=== PATIENT | female | born 1985 | race Caucasian/White ===

== ENCOUNTER 2016-09-26 09:50 | Emergency (ER) | payer OTHER ==
[2016-09-26 11:26] VITALS: BP 110/74
--- NOTE | 2016-09-26 11:40 | UC ---
Ear Complaint HPI - HPI Summary HPI Summary: About 4 weeks ago felt painful lump develop at entrance to L ear canal. Had similar problem 2.5 months ago; it drained and then felt better for a while, but it has not been painful for almost a month. Also drained this morning lots of yellow and green fluid. Pain radiating up and down ear/jaw, denies any widespread redness, fever or swelling. No hx of ear surgery, but says one ear was folded over at and so it had to be taped back against her head for 2 months. - History of Current Complaint Chief Complaint: Trixie Stated Complaint: SORE INSIDE OF EAR CANNAL Time Seen by Provider: 09/26/16 11:29 Hx Obtained From: Patient Hx Last Menstrual Period: 08/25/16-DEPO SHOT ?: No Onset/Duration: Gradual Onset, Lasting Weeks Severity Initially: Mild Severity Currently: Moderate Aggravating Factors: Nothing Alleviating Factors: Other (Noted In Comments) - drainage Associated Signs/Symptoms: Positive: Discharge. Negative: URI Symptoms - Allergies/Home Medications Allergies/Adverse Reactions: Allergies Allergy/AdvReac Type Severity Reaction Status Date / Time Cephalexin [From Keflex] Allergy Unknown Verified 06/20/15 18:15 Reaction Details Nitrofurantoin Allergy Vomiting Verified 06/20/15 18:15 [From Macrobid] PMH/Surg Hx/FS Hx/Imm Hx Endocrine History Of: Denies: Diabetes, Thyroid Disease Cardiovascular History Of: Denies: Cardiac Disorders, Hypertension Respiratory History Of: Denies: COPD, Asthma GI/ History Of: Reports: Gastroesophageal Reflux, Ulcer Other History Of: Negative For: Anticoagulant Therapy - Surgical History Surgical History: Yes Surgery Procedure, Year, and Place: APPENDECTOMY. tubal ligation - Family History Known Family History: Positive: Hypertension Negative: Cardiac Disease, Diabetes - Social History Occupation: Employed Full-time Alcohol Use: Occasionally Substance Use Type: None Smoking Status (MU): Light Every Day Tobacco Smoker Type: Cigarettes Amount Used/How Often: 1/2 PPD Household Exposure Type: Cigarettes - Immunization History Most Recent Influenza Vaccination: never Most Recent Tetanus Shot: unk Most Recent Pneumonia Vaccination: never Review of Systems Constitutional: Negative Skin: Negative Eyes: Negative ENT: Ear Ache Respiratory: Negative Cardiovascular: Negative Gastrointestinal: Negative Genitourinary: Negative Motor: Negative Neurovascular: Negative Musculoskeletal: Negative Neurological: Negative Psychological: Negative All Other Systems Reviewed And Are Negative: Yes Physical Exam Triage Information Reviewed: Yes Appearance: Well-Appearing, Well-Nourished, Pain Distress - with touch Vital Signs: Initial Vital Signs Temp 98.2 F 09/26/16 11:19 Pulse 71 09/26/16 11:19 Resp 16 09/26/16 11:19 BP 110/74 09/26/16 11:19 Pulse Ox 97 09/26/16 11:19 Vital Signs Reviewed: Yes Eye Exam: Normal Eyes: Positive: Conjunctiva Clear ENT: Positive: Hearing grossly normal, Pharynx normal, TMs normal, Other: - tender papule at L ear canal introitus, no drainage noted. Negative: Tonsillar swelling Dental Exam: Normal Neck exam: Normal Neck: Positive: Supple, Nontender, No Lymphadenopathy Respiratory Exam: Normal Respiratory: Positive: Chest non-tender, Lungs clear, Normal breath sounds, No respiratory distress, No accessory muscle use Cardiovascular Exam: Normal Cardiovascular: Positive: RRR, No Murmur Musculoskeletal Exam: Normal Neurological Exam: Normal Psychological Exam: Normal Skin Exam: Normal Ear Complaint Course/Dx - Differential Dx/Diagnosis Provider Diagnoses: L ear canal recurrent abscess Discharge - Discharge Plan Condition: Stable Disposition: HOME Prescriptions: Sulfamethox/Trimethoprim DS* [Bactrim DS 800/160 TAB*] 1 tab PO BID #10 tab Patient Education Materials: Abscess (ED) Referrals: Monica Herrera MD [Primary Care Provider] - Santos Pickard MD [Medical Doctor] - Additional Instructions: Continue to use the bactroban ointment and otherwise try to leave the painful sore alone. Arrange for a follow-up visit with the ENT office whenever they can get you in.
== END 2016-09-26 11:47 | disposition home or self-care (01) ==
LOC: UCEAST 09:50
DX: H60.02 Abscess of left external ear (principal); F17.210 Nicotine dependence, cigarettes, uncomplicated
CPT/HCPCS: 99212; G0463

== ENCOUNTER 2016-11-07 19:48 | Emergency (ER) | payer OTHER ==
[2016-11-07 20:11] VITALS: BP 121/80
[2016-11-07] MEDS ORDERED: Amoxicillin/Clavulanate TAB* 875 MG PO ONE (20:31)
--- NOTE | 2016-11-07 20:37 | UC ---
Throat Pain/Nasal Devin HPI - HPI Summary HPI Summary: THREE WEEKS SINUS PRESSURE AND EAR PRESSURE, THREE DAYS OF SORE THROAT. - History of Current Complaint Chief Complaint: UCRespiratory Stated Complaint: SORE THROAT Time Seen by Provider: 11/07/16 20:07 Hx Obtained From: Patient Hx Last Menstrual Period: TUBAL LIGATION, ON DEPO Onset/Duration: Sudden Onset, Lasting Weeks, Worse Since - THREE DAYS Severity: Moderate Cough: Nonproductive Associated Signs & Symptoms: Positive: Dysphagia, Hoarseness, Sinus Discomfort, Nasal Discharge - Epiglottits Risk Factors Epiglottis Risk Factors: Negative - Allergies/Home Medications Allergies/Adverse Reactions: Allergies Allergy/AdvReac Type Severity Reaction Status Date / Time Cephalexin [From Keflex] Allergy Unknown Verified 11/07/16 20:11 Reaction Details Nitrofurantoin Allergy Vomiting Verified 11/07/16 20:11 [From Macrobid] Home Medications: Home Medications Acetaminophen TAB* [Tylenol TAB*] 650 mg PO PRN 11/07/16 [History] medroxyPROGESTERone ACETATE* [DEPO-Provera*] 11/07/16 [History] PMH/Surg Hx/FS Hx/Imm Hx Previously Healthy: Yes Endocrine History Of: Denies: Diabetes, Thyroid Disease Cardiovascular History Of: Denies: Cardiac Disorders, Hypertension Respiratory History Of: Denies: COPD, Asthma GI/ History Of: Reports: Gastroesophageal Reflux, Ulcer Other History Of: Negative For: Anticoagulant Therapy - Surgical History Surgical History: Yes Surgery Procedure, Year, and Place: APPENDECTOMY. tubal ligation - Family History Known Family History: Positive: Hypertension Negative: Cardiac Disease, Diabetes - Social History Occupation: Employed Full-time Lives: With Family Alcohol Use: Rare Substance Use Type: None Smoking Status (MU): Current Every Day Smoker Type: Cigarettes Amount Used/How Often: 1/2 PPD Household Exposure Type: Cigarettes - Immunization History Most Recent Influenza Vaccination: never Most Recent Tetanus Shot: unk Most Recent Pneumonia Vaccination: never Review of Systems Constitutional: Negative Skin: Negative Eyes: Negative ENT: Sore Throat, Ear Ache Respiratory: Negative Cardiovascular: Negative Gastrointestinal: Negative Genitourinary: Negative Motor: Negative Neurovascular: Negative Musculoskeletal: Negative Neurological: Negative Psychological: Negative All Other Systems Reviewed And Are Negative: Yes Physical Exam Triage Information Reviewed: Yes Appearance: Well-Appearing, No Pain Distress, Well-Nourished Vital Signs: Initial Vital Signs Temp 97.6 F 11/07/16 20:08 Pulse 88 11/07/16 20:08 Resp 16 11/07/16 20:08 BP 121/80 11/07/16 20:08 Pulse Ox 100 11/07/16 20:08 Vital Signs Reviewed: Yes Eye Exam: Normal ENT Exam: Normal ENT: Positive: Pharyngeal erythema, TM bulging, TM dull, Tonsillar swelling Dental Exam: Normal Neck exam: Normal Neck: Positive: Supple, Nontender Respiratory Exam: Normal Respiratory: Positive: Chest non-tender, Lungs clear, Normal breath sounds, No respiratory distress Cardiovascular Exam: Normal Cardiovascular: Positive: RRR, No Murmur, Pulses Normal Abdominal Exam: Normal Musculoskeletal Exam: Normal Neurological Exam: Normal Psychological Exam: Normal Skin Exam: Normal Throat Pain/Nasal Course/Dx - Differential Dx/Diagnosis Differential Diagnosis/HQI/PQRI: Sinusitis, Tonsillitis, URI Provider Diagnoses: SINUSITIS. TONSILLITIS Discharge - Discharge Plan Condition: Stable Disposition: HOME Prescriptions: Amoxicillin/Clavulanate TAB* [Augmentin TAB 875*] 875 mg PO BID #20 tab Patient Education Materials: Sinusitis (ED), Tonsillitis (ED) Referrals: Blade Blackmon MD [Primary Care Provider] -
== END 2016-11-07 20:36 | disposition home or self-care (01) ==
LOC: UCEAST 19:48
DX: J32.9 Chronic sinusitis, unspecified (principal); J03.90 Acute tonsillitis, unspecified; Z88.1 Allergy status to other antibiotic agents; F17.210 Nicotine dependence, cigarettes, uncomplicated
CPT/HCPCS: 99212; A9270-GY; G0463

== ENCOUNTER 2017-01-16 11:19 | Emergency (ER) | payer OTHER ==
[2017-01-16 13:08] VITALS: BP 109/68
[2017-01-16] MEDS ORDERED: Meclizine TAB* 12.5 MG PO ONE (14:19)
--- NOTE | 2017-01-16 14:52 | ED ---
I, Oh,Kristy, scribed for Negar Weeks MD on 01/16/17 at 1352 . Dizziness - HPI Summary HPI Summary: This 31 y/o female presents to ED for intermittent dizziness since 2 days ago. She has just rolled out of bed at the time of onset when she noticed dizziness and had to lied back down. Position change such as standing from lying down make the dizziness worse. Pt had another episode today again while driving today , and pt decided to visit ED. Positive sinus pressure with brown mucus and ear discomfort since 10 days ago after her flight from [place]. "My ears keep popping ". PMHx is positive for chronic back pain. FHx is positive for PA, DM, CA to mother, and unspecified blood disorder to father. She lives with and kids. Current smoker. Primary care involves Dr. Blackmon. Pt states that she has been working on home project and has been going on a roof a lot. She was strongly recommended against driving and getting on roof again her vertigo is resolved. Plan of care with meclizine treatment and discharge is discussed with pt, and she is agreeable. - History Of Current Complaint Chief Complaint: EDDizziness Stated Complaint: DIZZY, VOMITING, Hx Obtained From: Patient Onset/Duration: Resolved Timing: Intermittent Episode Lasting Character: Dizzy Aggravating Factor(s): Position Change, Supine To Erect Alleviating Factor(s): Rest Associated Signs And Symptoms: Negative: Nausea, Vomiting, Tinnitus, Visual Changes, Inability to Walk, Slurred Speech - Allergies/Home Medications Allergies/Adverse Reactions: Allergies Allergy/AdvReac Type Severity Reaction Status Date / Time Cephalexin [From Keflex] Allergy Unknown Verified 11/07/16 20:11 Reaction Details Nitrofurantoin Allergy Vomiting Verified 11/07/16 20:11 [From Macrobid] PMH/Surg Hx/FS Hx/Imm Hx Endocrine/Hematology History: Denies: Hx Anticoagulant Therapy, Hx Diabetes, Hx Thyroid Disease Cardiovascular History: Denies: Hx Hypertension Respiratory History: Denies: Hx Asthma, Hx Chronic Obstructive Pulmonary Disease (COPD) GI History: Reports: Hx Gastroesophageal Reflux Disease, Hx Irritable Bowel, Hx Ulcer - Surgical History Surgery Procedure, Year, and Place: APPENDECTOMY. tubal ligation - Immunization History Date of Tetanus Vaccine: PT STATES UNSURE Date of Influenza Vaccine: NONE Infectious Disease History: Yes Infectious Disease History: Reports: Traveled Outside the [place] in Last 30 Days Denies: Hx Hepatitis, Hx Human Immunodeficiency Virus (HIV), History Other Infectious Disease - Family History Known Family History: Positive: Hypertension Negative: Cardiac Disease, Diabetes - Social History Alcohol Use: Rare Substance Use Type: Reports: None Hx Tobacco Use: Yes Smoking Status (MU): Current Every Day Smoker Type: Cigarettes Amount Used/How Often: 1/2 PPD Review of Systems Negative: Fever Positive: Other - ear pressure -- "ear popping". Positive for sinus pressure Neurological: Other - dizziness worse with position Negative: Weakness, Slurred Speech All Other Systems Reviewed And Are Negative: Yes Physical Exam Triage Information Reviewed: Yes Vital Signs On Initial Exam: Initial Vitals Temp Pulse Resp BP Pulse Ox 98.2 F 86 18 103/66 100 01/16/17 11:27 01/16/17 11:27 01/16/17 11:27 01/16/17 11:27 01/16/17 11:27 Vital Signs Reviewed: Yes Appearance: Positive: Well-Appearing, No Pain Distress Skin: Positive: Warm, Skin Color Reflects Adequate Perfusion, Dry Eyes: Positive: EOMI, OLIVER ENT: Positive: Pharynx normal, TMs normal, Other - erythema noted in right naris Neck: Positive: Supple, Nontender Respiratory/Lung Sounds: Positive: Clear to Auscultation, Breath Sounds Present Cardiovascular: Positive: RRR, Pulses are Symmetrical in both Upper and Lower Extremities Musculoskeletal: Positive: Strength/ROM Intact Neurological: Positive: Sensory/Motor Intact, Alert, Oriented to Person Place, Time, Heel to Toe, Finger to Nose Psychiatric: Positive: Affect/Mood Appropriate AVPU Assessment: Alert - [place] Coma Scale Coma Scale Total: 15 Diagnostics - Vital Signs Vital Signs Temp Pulse Resp BP Pulse Ox 01/16/17 13:05 83 109/68 01/16/17 13:02 65 18 01/16/17 12:55 98.2 F 73 18 107/73 73 01/16/17 11:27 98.2 F 86 18 103/66 100 - Laboratory Lab Statement: Any lab studies that have been ordered have been reviewed, and results considered in the medical decision making process. Dizzy Course/Dx - Course Course Of Treatment: 31 yo female who is very clear she had a uri upon returning from a trip to [facility] last Monday with vertigo starting this last week that was very positional also with continuing sinus pressure. Today the symptoms of vertigo came on while driving. her neuro exam including cerebellar testing and eomi are normal. she is going home with abx for sinusitis and antivert for her vertigo - Diagnoses Provider Diagnoses: Vertigo Discharge - Discharge Plan Condition: Stable Disposition: HOME Prescriptions: Amoxicillin/Clavulanate TAB* [Augmentin TAB 875*] 875 mg PO BID #20 tab Meclizine HCl [Dramamine Less Drowsy-] 25 mg PO Q6H PRN #20 tab PRN Reason: Vertigo Patient Education Materials: Meclizine (By mouth), Amoxicillin/Clavulanate Potassium (By mouth), Vertigo (ED) Referrals: Blade Blackmon MD [Primary Care Provider] - 2 Days Additional Instructions: Please be sure to refrain from driving and getting on the roof until your dizziness is resolved. The documentation as recorded by the [facility] accurately reflects the service I personally performed and the decisions made by me, Negar Weeks MD.
== END 2017-01-16 15:03 | disposition home or self-care (01) ==
LOC: ED 11:19
DX: R42 Dizziness and giddiness (principal); F17.210 Nicotine dependence, cigarettes, uncomplicated
CPT/HCPCS: 99282; A9270-GY

== ENCOUNTER 2018-08-29 22:55 | Emergency (ER) | payer OTHER ==
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
[2018-08-30] MEDS ORDERED: Metoclopramide IV* 5 MG/ML 2 ML VIAL IV SLOW PU ONE (00:08)
[2018-08-30] MEDS ORDERED: Ketorolac INJ* 30 MG/ML 1 ML VIAL IV PUSH ONE (00:08)
[2018-08-30] MEDS ORDERED: NS 0.9% 1000 ML* 1,000 ML IV ONE (00:09)
[2018-08-30] MEDS ORDERED: diPHENhydraMINE PO* 50 MG PO ONE (00:09)
--- NOTE | 2018-08-30 00:10 | ED ---
Headache - HPI Summary HPI Summary: This patient is a 32 year old F presenting to [facility] with a chief complaint of R sided, migraine-like headache that began at 1800 yesterday. The patient rates the pain 9/10 in severity. Symptoms aggravated by light. Symptoms alleviated by nothing. Patient reports neck pain. Patient states she had a cervical disc replacement in July of 2018. - History Of Current Complaint Chief Complaint: EDHeadache Stated Complaint: HEADACHE Time Seen by Provider: 08/30/18 00:01 Hx Obtained From: Patient Hx Last Menstrual Period: TUBAL LIGATION, ON DEPO Onset/Duration: Sudden Onset, Started hours ago, Still Present Initially Headache Was: Initial Pain Scale(0-10)= - 9 Currently Pain Is: Current Pain Scale(0-10)= - 9 Timing: Constant Character: Migraine Location of Headache: Temporal Aggravating Factor: Nothing Allevating Factors: Nothing Associated Signs And Symptoms: Neck Pain - Allergies/Home Medications Allergies/Adverse Reactions: Allergies Allergy/AdvReac Type Severity Reaction Status Date / Time cephalexin [From Keflex] Allergy Unknown Verified 08/29/18 23:07 Reaction Details nitrofurantoin Allergy Vomiting Verified 08/29/18 23:07 [From Macrobid] PMH/Surg Hx/FS Hx/Imm Hx Previously Healthy: No Endocrine/Hematology History: Denies: Hx Anticoagulant Therapy, Hx Diabetes, Hx Thyroid Disease Cardiovascular History: Denies: Hx Hypertension, Hx Pacemaker/ICD Respiratory History: Denies: Hx Asthma, Hx Chronic Obstructive Pulmonary Disease (COPD) GI History: Reports: Hx Gastroesophageal Reflux Disease, Hx Irritable Bowel, Hx Ulcer History: Denies: Hx Renal Disease Sensory History: Denies: Hx Hearing Aid Neurological History: Reports: Hx Migraine Psychiatric History: Denies: Hx Panic Disorder - Surgical History Surgery Procedure, Year, and Place: APPENDECTOMY. tubal ligation Hx Anesthesia Reactions: No - Immunization History Date of Tetanus Vaccine: PT STATES UNSURE Date of Influenza Vaccine: NONE Infectious Disease History: No Infectious Disease History: Denies: Hx Hepatitis, Hx Human Immunodeficiency Virus (HIV), History Other Infectious Disease, Traveled Outside the [place] in Last 30 Days - Family History Known Family History: Positive: Hypertension Negative: Cardiac Disease, Diabetes - Social History Occupation: Unemployed Lives: With Family Alcohol Use: Rare Hx Substance Use: No Substance Use Type: Reports: None Hx Tobacco Use: Yes Smoking Status (MU): Current Every Day Smoker Type: Cigarettes Amount Used/How Often: 1/2 PPD Review of Systems Positive: Photophobia Positive: Other - Positive neck pain Positive: Headache All Other Systems Reviewed And Are Negative: Yes Physical Exam - Summary Physical Exam Summary: VITAL SIGNS: Reviewed. GENERAL: Patient is a well-developed and nourished female who is lying comfortable in the stretcher. Patient is not in any acute respiratory distress. HEAD AND FACE: No signs of trauma. No ecchymosis, hematomas or skull depressions. No sinus tenderness. EYES: PERRLA, EOMI x 2, No injected conjunctiva, no nystagmus. EARS: Hearing grossly intact. Ear canals and tympanic membranes are within normal limits. MOUTH: Oropharynx within normal limits. NECK: Supple, trachea is midline, no adenopathy, no JVD, no carotid bruit, no c- spine tenderness, neck with full ROM. CHEST: Symmetric, no tenderness at palpation LUNGS: Clear to auscultation bilaterally. No wheezing or crackles. CVS: Regular rate and rhythm, S1 and S2 present, no murmurs or gallops appreciated. ABDOMEN: Soft, non-tender. No signs of distention. No rebound no guarding, and no masses palpated. Bowel sounds are normal. EXTREMITIES: FROM in all major joints, no edema, no cyanosis or clubbing. NEURO: Alert and oriented x 3. No acute neurological deficits. Speech is normal and follows commands. SKIN: Dry and warm Triage Information Reviewed: Yes Vital Signs On Initial Exam: Initial Vitals Temp Pulse Resp BP Pulse Ox 98.2 F 84 16 125/40 100 08/29/18 23:03 08/29/18 23:03 08/29/18 23:03 08/29/18 23:03 08/29/18 23:03 Vital Signs Reviewed: Yes Diagnostics - Vital Signs Vital Signs Temp Pulse Resp BP Pulse Ox 08/29/18 23:03 98.2 F 84 16 125/40 100 - Laboratory Lab Statement: Any lab studies that have been ordered have been reviewed, and results considered in the medical decision making process. Re-Evaluation - Re-Evaluation First Eval Re-Evaluation Time: 02:28 Change: Improved Comment: Patient reports her symptoms of improved Headache Course/Dx - Course Course Of Treatment: This patient is a 32 year old F presenting to [facility] with a chief complaint of R sided, migraine-like headache that began at 1800 yesterday. Physical Exam Findings: Nml. In the ED course the patient was given Toradol, fluids, Reglan, and Benadryl. Patient will be discharged with follow up from PCP. The patient is agreeable with this plan. - Diagnoses Provider Diagnoses: Migraine Discharge - Sign-Out/Discharge Documenting (check all that apply): Patient Departure - Discharge home - Discharge Plan Condition: Stable Disposition: HOME Patient Education Materials: Migraine Headache (ED) Referrals: Clif Valdovinos MD [Primary Care Provider] - 2 Days Additional Instructions: RETURN TO THE EMERGENCY DEPARTMENT FOR NEW OR WORSENING SYMPTOMS - Attestation Statements Document Initiated by Scribe: Yes Documenting Scribe: Lalita Way Provider For Whom Scribe is Documenting (Include Credential): Dr. Boaz Becker MD Scribe Attestation: Lalita Brown, scribed for Dr. Boaz Becker MD on 08/30/18 at 0229. Status of Scribe Document: Ready
[2018-08-30 02:44] VITALS: BP 100/72
== END 2018-08-30 02:43 | disposition home or self-care (01) ==
LOC: ED 22:55
DX: G43.909 Migraine, unspecified, not intractable, without status migrainosus (principal); H53.149 Visual discomfort, unspecified; M54.2 Cervicalgia; R51 Headache
CPT/HCPCS: 96365; 96366; 96375; 96376; 99282; A9270-GY; J1885; J2765